=== PATIENT | female | born 1960 ===

== ENCOUNTER 2023-01-15 00:31 | Emergency (ER) | payer SELFPAY ==
[2023-01-15 01:07] LABS: BASOPHILS PERCENT AUTO 0.4 % (0.0-1.0); EOSINOPHILS PERCENT AUTO 3.3 % (1.0-3.0); HEMATOCRIT 44.3 % (37.0-47.0); HEMOGLOBIN 14.6 g/dL (12.0-16.0); LYMPHOCYTES PERCENT AUTO 38.4 % (20.5-50.1); MEAN CORPUSCULAR HEMOGLOBIN 30.9 pg (27.0-34.0); MEAN CORPUSCULAR VOLUME 93.9 fL (80-100); NEUTROPHILS PERCENT AUTO 49.9 % (42.2-75.2); PLATELET COUNT,PLT 239 10^3/uL (150-450); RED BLOOD CELL COUNT 4.72 10^6/uL (4.2-5.4); WHITE BLOOD CELL COUNT,WBC 7.5 10^3/uL (5.0-10.0)
[2023-01-15 01:15] LABS: INR 0.9 (0.9-1.2); PROTHROMBIN TIME 9.7 SEC (9.0-12.0); PTT,PARTIAL THROMBOPLSTIN TIME 26.3 SEC (22.0-34.0)
[2023-01-15 01:17] LABS: A/G RATIO 1.1; ALANINE AMINOTRANSFERASE,ALT 17 U/L (14-59); ALBUMIN 4.1 g/dL (3.4-5.0); ALKALINE PHOSPHATASE 86 U/L (46-116); ASPARTATE AMNIOTRANSFERASE,AST 19 U/L (15-37); BILIRUBIN TOTAL 0.4 mg/dL (0.2-1.0); BLOOD UREA NITROGEN,BUN 14 mg/dL (7-18); BUN/CREATININE RATIO 16.9 (No establ ref range); CALCIUM 9.6 mg/dL (8.5-10.1); CARBON DIOXIDE,CO2 31 mmol/L (21-32); CHLORIDE,CL 103 mmol/L (98-107); CREATININE 0.83 mg/dL (0.55-1.02); GLUCOSE RANDOM 105 mg/dL (70-99); LIPASE 166 U/L (73-393); PROTEIN TOTAL,TP 7.8 g/dL (6.4-8.2); SODIUM,NA 139 mmol/L (136-145)
[2023-01-15 01:18] LABS: LACTIC ACID 0.4 mmol/L (0.4-2.0)
[2023-01-15 01:19] LABS: C-REACTIVE PROTEIN < 0.2 mg/dL (0.0-0.9); ESTIMATED GFR 79 mL/min (>=60)
[2023-01-15] MEDS ORDERED: Famotidine 20 MG/2 ML SDV IVPUSH ONE (01:23)
[2023-01-15] MEDS ORDERED: Aluminum Hydroxide/Magnesium Hydroxide/Simethicone Susp 30 ML Cup PO ONE (01:23)
[2023-01-15] MEDS ORDERED: Acetaminophen 500 MG Tab PO ONE (01:28)
[2023-01-15 02:27] LABS: APPEARANCE,URINE CLEAR (CLEAR); BILIRUBIN,URINE NEGATIVE (NEGATIVE); COLOR,URINE YELLOW (YELLOW); GLUCOSE,URINE NEGATIVE (NEGATIVE); KETONES,URINE NEGATIVE (NEGATIVE); LEUKOCYTE ESTERASE,URINE SMALL (NEGATIVE); NITRITE,URINE NEGATIVE (NEGATIVE); OCCULT BLOOD,URINE SMALL (NEGATIVE); PH,URINE 6.5 (5.0-9.0); PROTEIN,URINE NEGATIVE (NEGATIVE); UROBILINOGEN,URINE 0.2 mg/dL (0.2-1.0)
[2023-01-15 02:28] LABS: AMPHETAMINES,URINE NEGATIVE (NEGATIVE); BARBITURATES,URINE NEGATIVE (NEGATIVE); BENZODIAZEPINE,URINE NEGATIVE (NEGATIVE); MDMA (ECSTASY), URINE NEGATIVE (NEGATIVE); METHADONE,URINE NEGATIVE (NEGATIVE); METHAMPHETAMINES,URINE NEGATIVE (NEGATIVE); OPIATES,URINE NEGATIVE (NEGATIVE); OXYCODONE,URINE NEGATIVE (NEGATIVE); PHENCYCLIDINE,URINE NEGATIVE (NEGATIVE); TCA,URINE NEGATIVE (NEGATIVE)
[2023-01-15 02:51] LABS: BACTERIA,URINE FEW /HPF (0-FEW/HPF); EPITHELIAL CELLS,URINE FEW /HPF (NOT SEEN); RBC,URINE 0-5 /HPF (0-5); WBC,URINE 0-5 /HPF (0-5/HPF)
== END 2023-01-15 03:24 | disposition home or self-care (01) ==
LOC: DL.ED 00:31
DX: K21.9 Gastro-esophageal reflux disease without esophagitis (principal); I10 Essential (primary) hypertension; R25.1 Tremor, unspecified; Z88.0 Allergy status to penicillin; Z88.1 Allergy status to other antibiotic agents; Z88.2 Allergy status to sulfonamides; Z88.5 Allergy status to narcotic agent; Z88.6 Allergy status to analgesic agent; Z88.8 Allergy status to other drugs, medicaments and biological substances; Z91.040 Latex allergy status
CPT/HCPCS: 36415; 71045; 80053; 80305-QW; 81001; 83605; 83690; 84484; 85025; 85610; 85730; 86140; 87086; 93005; 93010; 96374; 99284; 99285-25; A9270-GY; J3490